=== PATIENT | female | born 1975 | race Caucasian/White ===

== ENCOUNTER → 2023-09-10 17:31 | Outpatient (REF) | payer OTHER, SELFPAY | LOC: PAVMRI 17:31 | PROVIDERS: ATTENDING PHYSICIAN Neurological Surgery; FAMILY PHYSICIAN Internal Medicine | DX: M54.9 Dorsalgia, unspecified (principal) | CPT/HCPCS: 72148 ==

== ENCOUNTER 2024-12-24 14:40 | Emergency (ER) | payer OTHER, SELFPAY ==
[2024-12-24 14:46] VITALS: BP 131/84
[2024-12-24 15:41] LABS: INR 1.03; PT 13.8 Sec (11.4-14.6)
[2024-12-24 15:43] LABS: ALT (SGPT) 23 U/L (0-35); AST (SGOT) 23 U/L (14-36); Albumin 4.4 g/dl (3.5-5.0); Alkaline Phosphatase 58 U/L (38-126); Blood Urea Nitrogen 15 mg/dl (7-17); Calcium 9.3 mg/dl (8.4-10.2); Carbon Dioxide 24 mmol/L (22-30); Chloride 107 mmol/L (98-107); Glucose 118 mg/dl (70-99); Potassium 4.0 mmol/L (3.5-5.1); Sodium 137 mmol/L (135-145); Total Protein 7.3 g/dl (6.3-8.2); eGFR > 60.00
[2024-12-24 15:55] LABS: Troponin I < 0.012 ng/ml
[2024-12-24 16:32] VITALS: BMI 27.0
--- NOTE | 2024-12-24 17:28 | ED.GENMED ---
History of Present Illness
General
Chief Complaint: DVT/Possible Blood Clot
Source: patient
Exam Limitations: none
Time Seen by Provider: 12/24/24 15:46
History of Present Illness
History of Present Illness:
Patient to ED hospital for special surgery left calf pain. Pain started yesterday. No history of trauma. No fever/chills. No prior history of same. To ED accompanied by spouse.
Past History
Past History
ED Past Medical History: Psychiatric (Anxiety)
ED Past Surgical History: Orthopedic
Social History
Tobacco: Non-smoker
Alcohol: Occasional
Personal:
Living: with family
Employment: Employed
Family History
Family History: Hypertension; Negative Early CAD or Sudden
Review of Systems
Review of Systems
Allergies reviewed?: Yes
All Other Systems: ROS reviewed and negative except as documented in HPI and ROS
Constitutional: Reports no symptoms
EENT: Reports no symptoms
Respiratory: Reports no symptoms
Cardiac: Reports no symptoms
ABD/GI: Reports no symptoms
Musculoskeletal: Reports other (left calf pain)
Skin: Reports no symptoms
Neurological: Reports no symptoms
Psychiatric: Reports no symptoms
Phy Exam
General Physical Exam
General Presentation: well appearing and mild distress
General age: appears stated age
General Skin: warm
General Habitus: normal
General Mental: alert
General Hydration: appears well hydrated
Musculoskeletal Exam
Musculoskeletal Exam: full ROM and neuro vasc intact
Skin Exam
Skin Exam: warm/dry and other (4cm area of erythema to posterior calf surrounding a varicose vein. Vein is hard, painful, consistent with superficial thrombophlebitis. No evidence for infectious process.)
Psychiatric Exam
Psychiatric Exam: normal mood/affect
Course
Orders/Labs/Results
Orders:
Orders
12/24/24 14:42
Legs, left US [US Periph Venous LOWER Ext LT] Urgent
Comment:
Reason For Exam: pain swelling
12/24/24 14:49
EKG [Electrocardiogram (*1)] Urgent
Reason for Study: Shortness of Breath
EKG- Treatment ONCE
12/24/24 15:06
Comprehensive Metabolic Panel Urgent
Prothrombin Time Urgent
Troponin I Urgent
Abnormal Lab Results
12/24/24
15:06
Glucose 118 H mg/dl
(70-99)
12/24/24 15:40
12/24/24 15:06
Vital Signs
Initial and Last Documented VS:
Initial Vital Signs
Temp Pulse Resp BP Pulse Ox
98.7 F 82 18 131/84 97
12/24/24 14:46 12/24/24 14:46 12/24/24 14:46 12/24/24 14:46 12/24/24 14:46
Last Documented Vital Signs
Temp Pulse Resp BP Pulse Ox
98.7 F 82 18 131/84 97
12/24/24 14:46 12/24/24 14:46 12/24/24 14:46 12/24/24 14:46 12/24/24 17:28
*Radiology
Radiology exam reviewed: radiology read reviewed
*Pulse Oximetry
SaO2: 97
Oxygen Mode of Delivery: Room air
Patient hypoxic: no
*Critical Care Note
Total Time (30-74mins, 75-104mins- exclusive of procedures): Not Applicable
Update Note
Update Note:
Patient to ED with cmoplaint of left calf pain. Symptoms started yesterday. Approx 4cm area of erythema surrounding a varicose vein. Vein is hard and painful consistent with superficial thrombophlebitis. Offered to have her return to [place] for
dedicated imaging but she declines. DVT study is neg. Recommend heat, ibuprofen, compression stockings. SHe was given instructions on s/s to return to ED and she is agreeable to plan.
ED Attending Note
-
Portions of this chart may have been created with voice recognition software.� Occasional wrong word or��sound alike� substitutions may have occurred due to the inherent limitations of voice recognition software.
Discharge Plan
Departure
Patient Disposition: Home (Routine Discharge)
Date of Disposition: 12/24/24
Time of Disposition: 17:26
Patient with high blood pressure during this ER visit?: No
Condition: Good
Covid-19: Not Applicable
Discharge Problem:
Superficial thrombophlebitis
Instructions: Superficial vein phlebitis and thrombosis, Ibuprofen
Prescriptions:
No Action
pantoprazole 40 MG tablet,delayed release (DR/EC)
40 mg PO DAILY Qty: 30 0RF
Referrals:
Desiree Rosas, DO [Family Provider, Internal Medicine] - Follow up in 2-3 days
Activity Restrictions/Additional Instructions:
Warm compresses to site 15-20 minutes at a time, 4-5 times daily. Consider wearing compression socks.
Interventions
Interventions:
*Risk Screen - Suicide Last Done: 12/24/24 14:48
*General Assessment Last Done: 12/24/24 14:48
*Neglect/Abuse Screening Last Done: 12/24/24 14:48
*ED- Fall Risk Assessment Last Done: 12/24/24 17:35
*ED COVID-19 Vaccine History Last Done: 12/24/24 14:48
*Nursing Disposition Last Done: 12/24/24 17:35
ED- Cardiac Assessment Last Done: 12/24/24 16:32
ED- Pulmonary Assessment Last Done: 12/24/24 16:32
ED-Skin Assessment Last Done: 12/24/24 16:32
Discharge Date and Time
Discharge Date/Time: 12/24/24 17:35
Print Language: MALTESE
== END 2024-12-24 17:35 | disposition home or self-care (01) ==
LOC: EMR 14:40
PROVIDERS: EMERGENCY PHYSICIAN Emergency Medicine; FAMILY PHYSICIAN Internal Medicine
DX: I80.9 Phlebitis and thrombophlebitis of unspecified site (principal); F41.9 Anxiety disorder, unspecified; Z82.49 Family history of ischemic heart disease and other diseases of the circulatory system
CPT/HCPCS: 99284; 80053; 84484; 85610; 93005; 93971